=== PATIENT | male | born 1930 | race Caucasian/White ===

== ENCOUNTER 2017-12-29 10:24 | Emergency (ER) | payer OTHER ==
[~2017-12-29] VITALS: Ht 182.9 cm; Wt 98.9 kg
[2017-12-29 10:24] VITALS: BP_SYST 164
[~2017-12-29 10:24] MED LIST: BRIM10DR2 OP; LAM25 PO; LATA2.5D2 OP; LEVO500T20 PO; LISI-600 PO; PLE5 PO
--- NOTE | 2017-12-29 10:29 | NUR ---
Placed in room 1 . Placed on case monitor, blood pressure machine and pulse oximeter. To gown for exam. Side rails up. Addendum: 12/29/17 at 1038 by [email or web address] pt was moved to [place] [id number]
--- NOTE | 2017-12-29 10:52 | NUR ---
ER Dr. acuna at bedside examining patient.
--- NOTE | 2017-12-29 11:14 | NUR ---
Pt returned from CT in stable condition.
--- NOTE | 2017-12-29 11:17 | NUR ---
Phleb at bedside for blood draw using 2 pt identifiers.
[2017-12-29 11:19] LABS: BILIRUBIN,URINE NEGATIVE (NEGATIVE); BLOOD, URINE NEGATIVE (NEGATIVE); CLARITY/URINE CLEAR (CLEAR); COLOR,URINE YELLOW (YELLOW); GLUCOSE,URINE NEGATIVE (NEGATIVE); KETONES,URINE NEGATIVE (NEGATIVE); LEUKOCYTE ESTERASE ,URINE NEGATIVE (NEGATIVE); NITRITE, URINE NEGATIVE (NEGATIVE); PH,URINE 6.5 (5.0-8.0); PROTEIN URINE NEGATIVE (NEGATIVE); UROBILINOGEN,URINE 0.2 (0.2-1.0)
--- NOTE | 2017-12-29 11:35 | NUR ---
EKG performed at bedside; familly present; pt ml; pt denies any pain or other symptoms at this time; will continue to monitor
[2017-12-29 11:44] LABS: BASOPHILS # (AUTO) 0.1 K/uL (0.0-0.2); BASOPHILS % (AUTO) 1.5 % (0.0-2.0); EOSINOPHILS # (AUTO) 0.1 K/uL (0.0-0.4); EOSINOPHILS % (AUTO) 1.9 % (0.0-4.0); HEMOGLOBIN 14.9 g/dL (14.0-18.0); LYMPHOCYTES # (AUTO) 1.4 K/uL (1.0-5.5); LYMPHOCYTES % (AUTO) 21.3 % (20.5-51.5); MEAN CORPUSCULAR HEMOGLOBIN 34 pg (27-31); MEAN CORPUSCULAR HGB CONC 34 % (32-36); MEAN CORPUSCULAR VOLUME 100 fL (79.0-98.0); MONOCYTES # (AUTO) 0.7 K/uL (0.0-1.0); MONOCYTES % (AUTO) 10.9 % (1.7-9.3); NEUTROPHILS # (AUTO) 4.2 K/uL (1.8-7.7); NEUTROPHILS % (AUTO) 64.4 % (40.0-70.0); PLATELET COUNT (AUTO) 203 K/uL (130-430); RED CELL DISTRIBUTION WIDTH 12.5 % (9.0-15.0); WHITE BLOOD COUNT (AUTO) 6.5 K/uL (4.8-10.8)
[2017-12-29 11:47] LABS: ANION GAP 5 (5-15); CALCIUM 9.3 mg/dL (8.4-11.0); CHLORIDE 106 mmol/L (98-107); CREATININE 0.98 mg/dL (0.55-1.30); GLUCOSE 115 mg/dL (70-99); POTASSIUM 4.2 mmol/L (3.5-5.1); SODIUM SERUM 141 mmol/L (136-145); UREA NITROGEN, BLOOD 14 mg/dL (8-21)
[2017-12-29 11:49] LABS: PROTHROMBIN TIME 10.4 SECS (9.5-12.5)
[2017-12-29 11:52] LABS: ALANINE AMINOTRANSFERASE 35 U/L (12-78); ASPARTATE AMINOTRANSFERASE 24 U/L (10-37); TOTAL BILIRUBIN 0.5 mg/dL (0.0-1.0)
--- NOTE | 2017-12-29 13:15 | NUR ---
Patient given written and verbal discharge instructions and verbalizes understanding. ER MD discussed with patient the results and treatment provided. Patient in stable condition. ID arm band removed. No Rx given. Patient educated on pain management and to follow up with PMD within 2-3days by Dr. Lopez; pt/family verbalized understanding. Pain Scale 0/10; pt and MD agreeable to discharge home; pt left with spouse without signing discharge paperwork. Opportunity for questions provided and answered. Medication side effect fact sheet provided.
== END 2017-12-29 13:15 | disposition home or self-care (01) ==
LOC: SED 10:24
DX: Z01.818 Encounter for other preprocedural examination (principal); R47.81 Slurred speech; I10 Essential (primary) hypertension; J44.9 Chronic obstructive pulmonary disease, unspecified; E11.9 Type 2 diabetes mellitus without complications; G40.909 Epilepsy, unspecified, not intractable, without status epilepticus; K21.9 Gastro-esophageal reflux disease without esophagitis; M19.90 Unspecified osteoarthritis, unspecified site; Z79.899 Other long term (current) drug therapy; Z86.79 Personal history of other diseases of the circulatory system; Z95.0 Presence of cardiac pacemaker
CPT/HCPCS: 36415; 70450-TC; 71045; 80053; 81003; 84484; 85025; 85610-TC; 85730-TC; 93005; 99285